=== PATIENT | male | born 1935 | race Caucasian/White ===

== ENCOUNTER 2019-07-13 14:31 | Emergency (ER) | payer MEDICARE, BC ==
[~2019-07-13] VITALS: Ht 177.8 cm; Wt 88.2 kg
[2019-07-13 15:10] LABS: BASOPHILS % (AUTO) 0.1 % (0-1); EOSINOPHILS % (AUTO) 0 % (0-6); HEMATOCRIT 42.4 % (42.0-52.0); HEMOGLOBIN 14.1 g/dl (14.0-17.9); LYMPHOCYTES # (AUTO) 0.5 X10'3 (1.1-4.8); LYMPHOCYTES % (AUTO) 5.7 % (21-51); MEAN CORPUSCULAR HEMOGLOBIN 33.2 PG (27.0-31.0); MEAN CORPUSCULAR HGB CONC 33.4 g/dL (33.0-36.5); MEAN CORPUSCULAR VOLUME 99.4 FL (78-98); MEAN PLATELET VOLUME 10.1 FL (7.4-10.4); MONOCYTES # (AUTO) 0.4 X10'3 (0-0.9); MONOCYTES % (AUTO) 4.3 % (2-12); NEUTROPHILS # (AUTO) 7.8 X10'3 (1.8-7.7); NEUTROPHILS % (AUTO) 89.9 % (42-75); PLATELET COUNT 170 X10'3 (140-440); RED BLOOD COUNT 4.26 X10'6 (4.70-6.10); RED CELL DISTRIBUTION WIDTH 13.8 % (11.5-14.5); WHITE BLOOD COUNT 8.7 X10'3 (4.5-11.0)
[2019-07-13 15:23] LABS: PARTIAL THROMBOPLASTIN TIME 28 SECONDS (22-32)
[2019-07-13 15:25] LABS: ALANINE AMINOTRANSFERASE 38 U/L (12-78); ALBUMIN 3.7 G/DL (3.4-5.0); ALBUMIN/GLOBULIN RATIO 1.2 (1.1-1.5); ALKALINE PHOSPHATASE 117 IU/L (46-116); ANION GAP 14 (8-16); ASPARTATE AMINO TRANSFERASE 21 U/L (10-37); BILIRUBIN,TOTAL 0.4 MG/DL (0.1-1.0); BLOOD UREA NITROGEN 33 MG/DL (7-18); BUN/CREATININE RATIO 16.3 (5.4-32.0); CALCIUM 9.7 MG/DL (8.5-10.1); CHLORIDE 110 MMOL/L (99-107); CREATININE 2.02 MG/DL (0.60-1.10); GLUCOSE 198 MG/DL (70-104); POTASSIUM 4.4 MMOL/L (3.5-5.1); SODIUM 146 MMOL/L (135-145); TOTAL PROTEIN 6.9 G/DL (6.4-8.2); eGFR 32 ML/MIN
--- NOTE | 2019-07-13 15:59 | NUR ---
Dr. Gonzalez at bedside.
[2019-07-13] MEDS ORDERED: MAGN500C16 PO (16:17)
[2019-07-13] MEDS ORDERED: POTA-82 PO (16:17)
[2019-07-13] MEDS ORDERED: RANI300T7 PO (16:17)
[2019-07-13] MEDS ORDERED: CYAN-51 PO (16:17)
[2019-07-13] MEDS ORDERED: APIX5TAB3 PO (16:17)
[2019-07-13] MEDS ORDERED: TERA2CAP4 PO (16:17)
[2019-07-13] MEDS ORDERED: FURO-149 PO (16:17)
[2019-07-13] MEDS ORDERED: LORA10TA7 PO (16:17)
[2019-07-13] MEDS ORDERED: CLON0.5T12 PO (16:17)
[2019-07-13] MEDS ORDERED: TIOT18CA3 PO (16:17)
[2019-07-13] MEDS ORDERED: DOCU-329 PO (16:17)
[2019-07-13] MEDS ORDERED: FLUT1BLS11 PO (16:17)
[2019-07-13 16:24] LABS: D-DIMER 0.42 MG/L FEU (0-0.50)
[2019-07-13] MEDS ORDERED: ALBU8.5H8 IH (16:31)
[2019-07-13] MEDS ORDERED: POLY17PO10 PO (16:31)
--- NOTE | 2019-07-13 16:44 | NUR ---
SON AT BEDSIDE.
[2019-07-13] MEDS ORDERED: ipratropium/albuterol 3ml nebule NEB ONE (17:00)
[2019-07-13] MEDS ORDERED: magnesium citrate 296ml oral solution PO ONE (18:00)
[2019-07-13 18:14] VITALS: BP 123/65
== END 2019-07-13 18:16 | disposition home or self-care (01) ==
LOC: ER 14:32
DX: J44.1 Chronic obstructive pulmonary disease with (acute) exacerbation (principal); Z86.711 Personal history of pulmonary embolism; Z87.891 Personal history of nicotine dependence; Z88.0 Allergy status to penicillin; Z79.899 Other long term (current) drug therapy
CPT/HCPCS: 36415; 71045; 80053; 83880; 84484; 85025; 85379; 85610; 85730; 93005; 94640; 94760; 99284